=== PATIENT | male | born 1980 | race Caucasian/White ===

== ENCOUNTER 2016-10-15 12:46 | Emergency (ER) | payer OTHER ==
--- NOTE | 2016-10-15 14:25 | ED ORDER SUMMARY ---
..... Patient: BOUCHRA KESSLER OrderSheet Formerly [facility] VisitID: [id number] [address] [place] [address] 36y, M Registration Date/Time: 10/15/2016 ORDER SHEET Weight: 67.1 kg Allergies: No Known Drug Allergy GENERAL ORDERS: Hip 2V Right w AP Pelvis Urgent (13:21 10/15/2016 Yury Adames-C) (Ack 13:24 Hakan) (13:34 Teri) MEDICATION ORDERS: Dilaudid IM 2 mg (HIGH ALERT MEDICATION, NOW) (13:32 10/15/2016 Yury Adames-C) (Ack 13:35 JDeElena R.N.) (13:41 JDeElena R.N.) Phenergan IM 12.5 mg (HIGH ALERT MEDICATION, NOW) (13:32 10/15/2016 Yury Adames-C) (Ack 13:35 JDeElena R.N.) (13:41 JDeElena R.N.) IV FLUIDS: ORDER SHEET NOTES: [Electronically signed by Wendi Maradiaga (14:33 10/15/2016)] [Electronically signed by Moni Camilo P.A.-C (15:57 10/15/2016)] [Electronically locked/signed by Wendi Maradiaga (14:33 10/15/2016)]
--- NOTE | 2016-10-15 14:25 | ED NURSING NOTES ---
Clinical Report - Nurses [facility] [address] [place] [address] 10/15/2016 12:47 Patient: BOUCHRA KESSLER TRIAGE Triage time 1255. Acuity: LEVEL 4. Chief Complaint: RIGHT LOWER EXTREMITY PAIN. Alert. No acute distress. --13:06 Wendi Maradiaga 13:14 10/15/16. BP: 126/82. HR: 123. RR: 24. O2 saturation: 98%. Temp: 97.2 F. Pain level now 02/12. --13:14 Wendi Maradiaga. Weight: 67.1 kg. Height/Length: 66 inches. BMI: 23.9. --13:02 Wendi Maradiaga. Medications Lyrica Oral. --13:03 Wendi Maradiaga. Allergies No Known Drug Allergy. --13:04 Wendi Maradiaga. History Arrived by private vehicle. Historian: patient. Accompanied by family. No injury occurred. This occurred (3 days ago). It is described as radiating to the right buttock, lower extremity, thigh, knee and calf. ( Pt with hx of chronic back pain with fusion, sts he no longer uses opiates and it was his decision to quit). Treatment COLUMNIST: None. SOCIAL HX: Never smoker. History of drug use: marijuana. NUTRITIONAL RISK ASSESSMENT: The nutritional risk assessment revealed no deficiencies. FUNCTIONAL ASSESSMENT: Functional assessment: no impairments noted. LEARNING NEEDS ASSESSMENT: The learning needs assessment revealed no barriers. --13:06 Wendi Maradiaga. PROBLEMS: Substance Abuse. Paronychia. Bronchitis. Fractured Phalanx (Toe). Abrasion(s). Epididymitis. Hernia. Back Injury. Back Pain. Acute Otalgia. Otitis Media. --13:04 Wendi Maradiaga. ADDITIONAL SURGERIES: Back Surgery. Inguinal Hernia Repair. --13:04 Wendi Maradiaga. Interventions ID band on patient. --13:06 Wendi Maradiaga. PHYSICAL ASSESSMENT To room via wheelchair. Patient gowned. GENERAL / NEURO / PSYCH: Oriented X 4. Alert. Appears in no acute distress. EXTREMITIES: Limited ROM present. Extremity pulses are within normal limits. No lower extremity edema. Right hip. Limited ROM secondary to pain. Right thigh. Right knee. Right leg. SKIN: Skin intact. Skin is warm and dry. --13:06 Wendi Maradiaga. NURSING PROGRESS NOTES Patient gowned. Reassurance given. Call light placed in reach. Side rails up x 1. Bed placed in lowest position. Brakes of bed on. Patient ready for evaluation- chart flagged. --13:07 Wendi Maradiaga 13:41 10/15/2016 Dilaudid (HYDROmorphone HCl PF) IM 2 mg given. Given in the right ventral gluteus. Allergies verified, confirmed 5 rights and sedative warning given to the patient. --13:41 Emery Cuevas, RRomuloN. 13:41 10/15/2016 Phenergan (Promethazine HCl) IM 12.5 mg given. Given in the right ventral gluteus. Allergies verified, confirmed 5 rights and sedative warning given to the patient. --13:41 Emery Cuevas, R.N. Reassessment after medication administered. He is calm and resting quietly and has had no adverse reaction. Overall patient status is improved- he states feels better. --14:33 Wendi Maradiaga. DISPOSITION / DISCHARGE Departure time: 1430. Condition at departure: improved and stable. No learning barriers present. Discharge instructions provided and reviewed with the patient. Reviewed medication(s). Patient verbalized understanding. Written instructions provided in Albanian. The patient was discharged by the physician assistant prosecuting attorney. He was discharged home and accompanied by senior ui software engineer. He left the Emergency Department ambulatory and via private vehicle. Lead Vulcanizing Operator driving. --14:32 Wendi Maradiaga 14:31 10/15/16. BP: 121/67. HR: 113. RR: 16. O2 saturation: 98%. Pain level now 12/12. --14:32 Wendi Maradiaga. Locked/Released at 10/15/2016 14:33 by Wendi Maradiaga,
--- NOTE | 2016-10-15 14:25 | ED NURSING NOTES ---
Clinical Report - Nurses [facility] [address] [place] [address] 10/15/2016 12:47 Patient: BOUCHRA KESSLER TRIAGE Triage time 1255. Acuity: LEVEL 4. Chief Complaint: RIGHT LOWER EXTREMITY PAIN. Alert. No acute distress. --13:06 Wendi Maradiaga 13:14 10/15/16. BP: 126/82. HR: 123. RR: 24. O2 saturation: 98%. Temp: 97.2 F. Pain level now 02/12. --13:14 Wendi Maradiaga. Weight: 67.1 kg. Height/Length: 66 inches. BMI: 23.9. --13:02 Wendi Maradiaga. Medications Lyrica Oral. --13:03 Wendi Maradiaga. Allergies No Known Drug Allergy. --13:04 Wendi Maradiaga. History Arrived by private vehicle. Historian: patient. Accompanied by family. No injury occurred. This occurred (3 days ago). It is described as radiating to the right buttock, lower extremity, thigh, knee and calf. ( Pt with hx of chronic back pain with fusion, sts he no longer uses opiates and it was his decision to quit). Treatment WIRER MAINTENANCE: None. SOCIAL HX: Never smoker. History of drug use: marijuana. NUTRITIONAL RISK ASSESSMENT: The nutritional risk assessment revealed no deficiencies. FUNCTIONAL ASSESSMENT: Functional assessment: no impairments noted. LEARNING NEEDS ASSESSMENT: The learning needs assessment revealed no barriers. --13:06 Wendi Maradiaga. PROBLEMS: Substance Abuse. Paronychia. Bronchitis. Fractured Phalanx (Toe). Abrasion(s). Epididymitis. Hernia. Back Injury. Back Pain. Acute Otalgia. Otitis Media. --13:04 Wendi Maradiaga. ADDITIONAL SURGERIES: Back Surgery. Inguinal Hernia Repair. --13:04 Wendi Maradiaga. Interventions ID band on patient. --13:06 Wendi Maradiaga. PHYSICAL ASSESSMENT To room via wheelchair. Patient gowned. GENERAL / NEURO / PSYCH: Oriented X 4. Alert. Appears in no acute distress. EXTREMITIES: Limited ROM present. Extremity pulses are within normal limits. No lower extremity edema. Right hip. Limited ROM secondary to pain. Right thigh. Right knee. Right leg. SKIN: Skin intact. Skin is warm and dry. --13:06 Wendi Maradiaga. NURSING PROGRESS NOTES Patient gowned. Reassurance given. Call light placed in reach. Side rails up x 1. Bed placed in lowest position. Brakes of bed on. Patient ready for evaluation- chart flagged. --13:07 Wendi Maradiaga 13:41 10/15/2016 Dilaudid (HYDROmorphone HCl PF) IM 2 mg given. Given in the right ventral gluteus. Allergies verified, confirmed 5 rights and sedative warning given to the patient. --13:41 Emery Cuevas, RRomuloN. 13:41 10/15/2016 Phenergan (Promethazine HCl) IM 12.5 mg given. Given in the right ventral gluteus. Allergies verified, confirmed 5 rights and sedative warning given to the patient. --13:41 Emery Cuevas, R.N. Reassessment after medication administered. He is calm and resting quietly and has had no adverse reaction. Overall patient status is improved- he states feels better. --14:33 Wendi Maradiaga. DISPOSITION / DISCHARGE Departure time: 1430. Condition at departure: improved and stable. No learning barriers present. Discharge instructions provided and reviewed with the patient. Reviewed medication(s). Patient verbalized understanding. Written instructions provided in Mohawk. The patient was discharged by the physician endodontic assistant. He was discharged home and accompanied by employment director. He left the Emergency Department ambulatory and via private vehicle. Contract Negotiation Specialist driving. --14:32 Wendi Maradiaga 14:31 10/15/16. BP: 121/67. HR: 113. RR: 16. O2 saturation: 98%. Pain level now 12/12. --14:32 Wendi Maradiaga. Locked/Released at 10/15/2016 14:33 by Wendi Maradiaga,
--- NOTE | 2016-10-15 14:25 | ED ORDER SUMMARY ---
..... Patient: BOUCHRA KESSLER OrderSheet [facility] VisitID: [id number] [address] [place] [address] 36y, M Registration Date/Time: 10/15/2016 ORDER SHEET Weight: 67.1 kg Allergies: No Known Drug Allergy GENERAL ORDERS: Hip 2V Right w AP Pelvis Urgent (13:21 10/15/2016 Yury Adames-C) (Ack 13:24 Hakan) (13:34 Teri) MEDICATION ORDERS: Dilaudid IM 2 mg (HIGH ALERT MEDICATION, NOW) (13:32 10/15/2016 Yury Adames-C) (Ack 13:35 JDeElena R.N.) (13:41 JDeElena R.N.) Phenergan IM 12.5 mg (HIGH ALERT MEDICATION, NOW) (13:32 10/15/2016 Yury Adames-C) (Ack 13:35 JDeElena R.N.) (13:41 JDeElena R.N.) IV FLUIDS: ORDER SHEET NOTES: [Electronically signed by Wendi Maradiaga (14:33 10/15/2016)] [Electronically signed by Moni Camilo P.A.-C (15:57 10/15/2016)] [Electronically locked/signed by Wendi Maradiaga (14:33 10/15/2016)]
--- NOTE | 2016-10-15 14:25 | ED CLINICAL REPORT ---
Clinical Report - Physicians/Mid Levels [facility] [address] [place] [address] 10/15/2016 12:47 Patient: BOUCHRA KESSLER Time Seen: 15:34 Oct 15 2016. Arrived- By private vehicle. Historian- patient. HISTORY OF PRESENT ILLNESS Chief Complaint: BACK PAIN. Onset- 3 days and it is still present. It is described as being in the area of the right SI joint and right gluteus. The quality is noted to be "pain". No bladder dysfunction or bowel dysfunction. Additional history - Patient with history of chronic low back pain, recently stopped taking Suboxone,on his own. Patient reports over the last 3 days in worsening of his chronic low back pain extending into his right hip. Pain with movement. Patient is a ambulance with a cane. Patient on disability, limited ambulation or any activity at home. Here with his father. Patient has not seen his regular doctor. Denies any recent IV drug abuse I am over the last 6 months. Patient denies any fevers. Denies any paresthesias. Pain is elicited and worsened with movement. Patient does not take any medications at home. Denies any direct fall or trauma. Denies any radiation into his calf. Denies any abdominal pain, urgency or frequency. Patient notes the possibility of an injury. REVIEW OF SYSTEMS No fever, difficulty with urination, urinary frequency, vaginal discharge or headache. No cough, difficulty breathing, nausea or vomiting. All systems otherwise negative, except as recorded above. PAST HISTORY Problems: Substance Abuse. Paronychia. Bronchitis. Fractured Phalanx (Toe). Abrasion(s). Epididymitis. Hernia. Back Injury. Back Pain. Acute Otalgia. Otitis Media. Additional Surgeries: Back Surgery. Inguinal Hernia Repair. Medications: Lyrica Oral. Allergies: No Known Drug Allergy. SOCIAL HISTORY Never smoker. History of drug use: marijuana. Not an IV drug user. No alcohol use. ADDITIONAL NOTES The nursing notes have been reviewed. PHYSICAL EXAM Vital Signs: 10/15/2016 13:14 BP: 126/82. HR: 123. RR: 24. O2 saturation: 98%. Temp: 97.2 F. Appearance: Alert. Neck: Normal inspection. Neck nontender. CVS: Pulses normal. Respiratory: No respiratory distress. Breath sounds normal. Abdomen: No visible injury. Soft. Bowel sounds normal. No rebound tenderness. Back: Normal inspection. No tenderness. Mild vertebral point tenderness over the mid and lower lumbar spine. Skin: Skin warm. Normal skin color. Extremities: Right hip: located in the lateral aspect of the hip. Limited ROM secondary to pain (diminished external rotation). No tenderness, swelling, ecchymosis or foreign body. The right leg is not shortened or flexed. Neuro: Oriented X 3. Mood/affect normal. PROGRESS AND PROCEDURES Course of Care: There are no risks for spinal epidural abscess or hematoma as patient is without any risk factors such as IVDA or evidence of active infection, no midline tenderness to percussion. Hence I do not feel emergent imaging with an MRI is indicated. However I did discuss with the patient that if these symptoms develop, or if the pain does not resolve an MRI may need to be done outpatient, or in the ED if symptoms worsen acutely or new onset of the above mentioned symptoms develop. Patient urged to follow up with his primary care provider. Very stable. 10/15/2016 14:31 BP: 121/67. HR: 113. RR: 16. O2 saturation: 98%. Patient is stable. Symptoms better. Patient/family counseled. Disposition: Discharged. CLINICAL IMPRESSION Acute right sided lumbar radiculopathy. Arthritis of the right hip. INSTRUCTIONS Prescription Medications: Hydrocodone/APAP 7.5mg / 325mg: take 1 orally every 6 hours as needed for pain. Dispense twenty (20). No refill. Robaxin 750 mg: take 1 orally every 8 hours for 5 days, as needed for muscle spasm or pain. Dispense fifteen (15). No refill. Ibuprofen 800 mg tablets: take 1 tablet orally every 8 hours for 5 days, as needed for pain. Dispense fifteen (15). No refill. (Electronically signed by Moni Camilo P.A.-C 10/15/2016 15:57)
--- NOTE | 2016-10-15 14:32 | DIAGNOSTIC IMAGING REPORT ---
PROCEDURE: XR HIP 2VW W W/O AP PELVIS-RT INDICATION: PAIN IN JOINT TECHNIQUE: AP view of the pelvis and hips with lateral view of the right hip. COMPARISON: None. FINDINGS: RIGHT HIP: No fracture or dislocation. Normal joint space. PELVIS: No suspicious osseous lesion. L5-S1 surgical fusion with pedicle screws and stabilization bars. Soft tissues are unremarkable. IMPRESSION: 1. Negative right hip.
--- NOTE | 2016-10-15 15:57 | ED MAR SUMMARY ---
..... Medication Administration Record [facility] [address] [place] [address] Patient: BOUCHRA KESSLER Visit ID: [id number] 36y, M Weight: 67.1 kg Height/Length: 66 in BMI: 23.9 ALLERGIES: No Known Drug Allergy Given 13:10/15/2016 Emery Cuevas, R.N. Medication Administered: DILAUDID [IM] (HYDROMORPHONE HCL PF), Dose: 2 mg IM. Medication Ordered: Dilaudid IM 2 mg (HIGH ALERT MEDICATION, NOW). Given 13:10/15/2016 Emery Cuevas, R.N. Medication Administered: PHENERGAN [IM] (PROMETHAZINE HCL), Dose: 12.5 mg IM. Medication Ordered: Phenergan IM 12.5 mg (HIGH ALERT MEDICATION, NOW).
--- NOTE | 2016-10-15 15:57 | ED MED RECONCILIATION SUMMARY ---
Patient: BOUCHRA KESSLER Medication Reconciliation Report [facility] VisitID: [id number] [address] [place] [place] [address] 36y, M Registration Date/Time: 10/15/2016 Weight: 67.1 kg Height/Length: 66 in. BMI: 23.9 ALLERGIES: No Known Drug Allergy The patient's Home Medications are listed below: THE FOLLOWING MEDICATIONS NEED TO BE RECONCILED: Lyrica Oral The source(s) of the original Home Medication information: Not obtained. The following Medications were given to the patient in the Emergency Department: Dilaudid [IM] IM 2 mg, administered: 10/15/2016 1:41:00 PM Phenergan [IM] IM 12.5 mg, administered: 10/15/2016 1:41:00 PM The following Medications were prescribed to the patient: Hydrocodone/APAP 7.5mg / 325mg: take 1 orally every 6 hours as needed for pain. Dispense twenty (20). No refill. -- Moni Camilo, P.A.-C Robaxin 750 mg: take 1 orally every 8 hours for 5 days, as needed for muscle spasm or pain. Dispense fifteen (15). No refill. -- Moni Camilo, P.A.-C Ibuprofen 800 mg tablets: take 1 tablet orally every 8 hours for 5 days, as needed for pain. Dispense fifteen (15). No refill. -- Moni Camilo, P.A.-C
--- NOTE | 2016-10-15 15:57 | ED MAR SUMMARY ---
..... Medication Administration Record [facility] [address] [place] [address] Patient: BOUCHRA KESSLER Visit ID: [id number] 36y, M Weight: 67.1 kg Height/Length: 66 in BMI: 23.9 ALLERGIES: No Known Drug Allergy Given 13:10/15/2016 Emery Cuevas, R.N. Medication Administered: DILAUDID [IM] (HYDROMORPHONE HCL PF), Dose: 2 mg IM. Medication Ordered: Dilaudid IM 2 mg (HIGH ALERT MEDICATION, NOW). Given 13:10/15/2016 Emery Cuevas, R.N. Medication Administered: PHENERGAN [IM] (PROMETHAZINE HCL), Dose: 12.5 mg IM. Medication Ordered: Phenergan IM 12.5 mg (HIGH ALERT MEDICATION, NOW).
--- NOTE | 2016-10-15 15:57 | ED MED RECONCILIATION SUMMARY ---
Patient: BOUCHRA KESSLER Medication Reconciliation Report [facility] VisitID: [id number] [address] [place] [address] 36y, M Registration Date/Time: 10/15/2016 Weight: 67.1 kg Height/Length: 66 in. BMI: 23.9 ALLERGIES: No Known Drug Allergy The patient's Home Medications are listed below: THE FOLLOWING MEDICATIONS NEED TO BE RECONCILED: Lyrica Oral The source(s) of the original Home Medication information: Not obtained. The following Medications were given to the patient in the Emergency Department: Dilaudid [IM] IM 2 mg, administered: 10/15/2016 1:41:00 PM Phenergan [IM] IM 12.5 mg, administered: 10/15/2016 1:41:00 PM The following Medications were prescribed to the patient: Hydrocodone/APAP 7.5mg / 325mg: take 1 orally every 6 hours as needed for pain. Dispense twenty (20). No refill. -- Moni Camilo, P.A.-C Robaxin 750 mg: take 1 orally every 8 hours for 5 days, as needed for muscle spasm or pain. Dispense fifteen (15). No refill. -- Moni Camilo, P.A.-C Ibuprofen 800 mg tablets: take 1 tablet orally every 8 hours for 5 days, as needed for pain. Dispense fifteen (15). No refill. -- Moni Camilo, P.A.-C
--- NOTE | 2016-10-15 15:57 | ED DISCHARGE INSTRUCTIONS ---
Patient: BOUCHRA KESSLER General Instructions [facility] VisitID: [id number] [place] [address] 36y, M Registration Date/Time: 10/15/2016 Acute right sided lumbar radiculopathy. Arthritis of the right hip. INSTRUCTIONS Prescription Medications: Hydrocodone/APAP 7.5mg / 325mg: take 1 orally every 6 hours as needed for pain. Dispense twenty (20). No refill. Robaxin 750 mg: take 1 orally every 8 hours for 5 days, as needed for muscle spasm or pain. Dispense fifteen (15). No refill. Ibuprofen 800 mg tablets: take 1 tablet orally every 8 hours for 5 days, as needed for pain. Dispense fifteen (15). No refill. ADDITIONAL INFORMATION Sciatica Sciatica ("Lumbar Radiculopathy") causes a pain that spreads from the lower back down into the buttock, hip and leg. Sometimes leg pain can occur without any back pain. Sciatica is due to irritation or pressure on a spinal nerve as it comes out of the spinal canal. This is most often due to a bulge or rupture of a nearby spinal disk (the cartilage cushion between each spinal bone), which presses on a nearby nerve. Other causes include spinal stenosis (narrowing of the spinal canal) and spasm of the pyriform muscle (a muscle in the buttocks that the sciatic nerve passes through). Sciatica may begin after a sudden twisting/bending force (such as in a car accident), or sometimes after a simple awkward movement. In either case, muscle spasm is commonly present and contributes to the pain. The diagnosis of sciatica is made from the symptoms and physical exam. Unless you had a physical injury (such as a car accident or fall), X-rays are usually not ordered for the initial evaluation of sciatica because the nerves and disks cannot be seen on an x-ray. If signs of a compressed nerve are present (for example, loss of tendon reflex or strength in the leg), an MRI (magnetic resonance imaging) scan will need to be scheduled as an outpatient. Most sciatica (80-90%) gets better with medicine, exercise, physical therapy. If symptoms continue after at least three months of medical treatment, surgery may be considered. Home Care: You may need to stay in bed the first few days. But, as soon as possible, begin sitting or walking to avoid problems with prolonged bed rest. When in bed, try to find a position of comfort. A firm mattress is best. Try lying flat on your back with pillows under your knees. You can also try lying on your side with your knees bent up towards your chest and a pillow between your knees. Avoid prolonged sitting. This puts more stress on the lower back than standing or walking. Some persons find relief with heat (hot shower, hot bath or heating pad) and massage, while others prefer cold packs (crushed or cubed ice in a plastic bag, wrapped in a towel). Try both and use the method that feels best for 20 minutes several times a day. You may use acetaminophen (Tylenol) or ibuprofen (Motrin, Advil) to control pain, unless another pain medicine was prescribed. [ NOTE: If you have chronic liver or kidney disease or ever had a stomach ulcer or GI bleeding, talk with your doctor before using these medicines.] Be aware of safe lifting methods and do not lift anything over 15 pounds until all the pain is gone. Follow Up with your doctor or this facility if your symptoms do not start to improve after one week. Physical therapy or further testing may be needed. [NOTE: If X-rays were taken, they will be reviewed by a radiologist. You will be notified of any new findings that may affect your care.] Get Prompt Medical Attention if any of the following occur: Pain becomes worse, not controlled by the prescribed medicine Weakness or numbness in one or both legs Numbness in the groin, genital area Loss of bowel or bladder control Arthralgia Arthralgia is the term for pain in or around the joint. It is not a disease but a symptom. This may involve one or more joints. Sometimes arthralgias move from joint to joint. There are many causes for joint pain. These include: Injury Osteoarthritis (from wearing out of the joint surface) Rheumatoid arthritis (an autoimmune disease) Gout (inflammation of the joint due to crystals in the joint fluid) Infection inside the joint Bursitis (inflammation of the fluid-filled sacs around the joint) Lupus and other collagen-vascular disease Home Care: Rest the involved joint(s) until your symptoms improve. You may use acetaminophen (Tylenol) or ibuprofen (Motrin, Advil) to control pain, unless another pain medicine was prescribed. [NOTE: If you have chronic liver or kidney disease or ever had a stomach ulcer or GI bleeding, talk with your doctor before using these medicines.] Follow Up with your doctor or as advised by our staff. [NOTE: If you had an X-ray it will be reviewed by a specialist. You will be notified of any new findings that may affect your care.] Return Promptly or contact your doctor if any of the following occurs: Pain increases Pain moves to other joints New rash appears Fever of 100.4F (38C) or higher, or as directed by your healthcare provider Hydrocodone Bitartrate, Acetaminophen Oral tablet What is this medicine? ACETAMINOPHEN; HYDROCODONE (a set a MIKE kira fen; nae droe KOE done) is a pain reliever. It is used to treat mild to moderate pain. How should I use this medicine? Take this medicine by mouth. Swallow it with a full glass of water. Follow the directions on the prescription label. If the medicine upsets your stomach, take the medicine with food or milk. Do not take more than you are told to take. Talk to your zookeeper regarding the use of this medicine in children. This medicine is not approved for use in children. What side effects may I notice from receiving this medicine? Side effects that you should report to your doctor or health primary care sales representative as soon as possible: allergic reactions like skin rash, itching or hives, swelling of the face, lips, or tongue breathing problems confusion feeling faint or lightheaded, falls stomach pain yellowing of the eyes or skin Side effects that usually do not require medical attention (report to your doctor or health primary care sales representative if they continue or are bothersome): nausea, vomiting stomach upset What may interact with this medicine? alcohol antihistamines isoniazid medicines for depression, anxiety, or psychotic disturbances medicines for sleep muscle relaxants naltrexone narcotic medicines (opiates) for pain phenobarbital ritonavir tramadol What if I miss a dose? If you miss a dose, take it as soon as you can. If it is almost time for your next dose, take only that dose. Do not take double or extra doses. Where should I keep my medicine? Keep out of the reach of children. This medicine can be abused. Keep your medicine in a safe place to protect it from theft. Do not share this medicine with anyone. Selling or giving away this medicine is dangerous and against the law. Store at room temperature between 15 and 30 degrees C (59 and 86 degrees F). Protect from light. Keep container tightly closed. Throw away any unused medicine after the expiration date. Discard unused medicine and used packaging carefully. Pets and children can be harmed if they find used or lost packages. What should I tell my health care provider before I take this medicine? They need to know if you have any of these conditions: brain tumor Crohn's disease, inflammatory bowel disease, or ulcerative colitis drink more than 3 alcohol-containing drinks per day drug abuse or addiction head injury heart or circulation problems kidney disease or problems going to the bathroom liver disease lung disease, asthma, or breathing problems an unusual or allergic reaction to acetaminophen, hydrocodone, other opioid analgesics, other medicines, foods, dyes, or preservatives or trying to get breast-feeding What should I watch for while using this medicine? Tell your doctor or health primary care sales representative if your pain does not go away, if it gets worse, or if you have new or a different type of pain. You may develop tolerance to the medicine. Tolerance means that you will need a higher dose of the medicine for pain relief. Tolerance is normal and is expected if you take the medicine for a long time. Do not suddenly stop taking your medicine because you may develop a severe reaction. Your body becomes used to the medicine. This does NOT mean you are addicted. Addiction is a behavior related to getting and using a drug for a non-medical reason. If you have pain, you have a medical reason to take pain medicine. Your doctor will tell you how much medicine to take. If your doctor wants you to stop the medicine, the dose will be slowly lowered over time to avoid any side effects. You may get drowsy or dizzy when you first start taking the medicine or change doses. Do not drive, use machinery, or do anything that may be dangerous until you know how the medicine affects you. Stand or sit up slowly. There are different types of narcotic medicines (opiates) for pain. If you take more than one type at the same time, you may have more side effects. Give your health care provider a list of all medicines you use. Your doctor will tell you how much medicine to take. Do not take more medicine than directed. Call emergency for help if you have problems breathing. The medicine will cause constipation. Try to have a bowel movement at least every 2 to 3 days. If you do not have a bowel movement for 3 days, call your doctor or health primary care sales representative. Too much acetaminophen can be very dangerous. Do not take Tylenol (acetaminophen) or medicines that contain acetaminophen with this medicine. Many non-prescription medicines contain acetaminophen. Always read the labels carefully. Methocarbamol Oral tablet What is this medicine? METHOCARBAMOL (meth oh JEANA ba mole) helps to relieve pain and stiffness in muscles caused by strains, sprains, or other injury to your muscles. How should I use this medicine? Take this medicine by mouth with a full glass of water. Follow the directions on the prescription label. Take your medicine at regular intervals. Do not take your medicine more often than directed. Talk to your zookeeper regarding the use of this medicine in children. Special care may be needed. What side effects may I notice from receiving this medicine? Side effects that you should report to your doctor or health primary care sales representative as soon as possible: allergic reactions like skin rash, itching or hives, swelling of the face, lips, or tongue blurred vision or changes in vision confusion fainting spells fever nausea or vomiting seizures Side effects that usually do not require medical attention (report to your doctor or health primary care sales representative if they continue or are bothersome): dizziness drowsiness headache metallic taste What may interact with this medicine? alcohol or medicines that contain alcohol cholinesterase inhibitors like neostigmine, ambenonium, and pyridostigmine bromide other medicines that cause drowsiness What if I miss a dose? If you miss a dose, take it as soon as you can. If it is almost time for your next dose, take only the next dose. Do not take double or extra doses. Where should I keep my medicine? Keep out of the reach of children. Store at room temperature between 20 and 25 degrees C (68 and 77 degrees F). Keep container tightly closed. Throw away any unused medicine after the expiration date. What should I tell my health care provider before I take this medicine? They need to know if you have any of these conditions: kidney disease seizures an unusual or allergic reaction to methocarbamol, other medicines, foods, dyes, or preservatives or trying to get breast-feeding What should I watch for while using this medicine? You may get drowsy or dizzy. Do not drive, use machinery, or do anything that needs mental alertness until you know how this medicine affects you. Do not stand or sit up quickly, especially if you are an older patient. This reduces the risk of dizzy or fainting spells. Alcohol may interfere with the effect of this medicine. Avoid alcoholic drinks. You have been given the following additional information: Back Pain W/ Sciatica Arthralgia Hydrocodone Bitartrate, Acetaminophen Oral tablet Methocarbamol Oral tablet (Electronically signed by Moni Camilo P.A.-C 10/15/2016 15:57)
== END 2016-10-15 14:30 | disposition home or self-care (01) ==
LOC: ED SRH 12:46
DX: M54.16 Radiculopathy, lumbar region (principal); M16.11 Unilateral primary osteoarthritis, right hip; Z79.899 Other long term (current) drug therapy

== ENCOUNTER 2016-12-11 12:41 | Emergency (ER) | payer OTHER ==
--- NOTE | 2016-12-11 16:37 | DIAGNOSTIC IMAGING REPORT ---
PROCEDURE: XR CHEST 1 VIEW INDICATION: FEVER TECHNIQUE: Portable AP view (1500 hours). COMPARISON: Para chest x-ray on 10/08/2015. FINDINGS: Lungs are clear. Heart and mediastinum are normal. Thorax is normal. IMPRESSION: 1. Negative chest. 2. Findings discussed with Dr. Pricilla Ortega.
--- NOTE | 2016-12-11 18:02 | ED CLINICAL REPORT ---
Clinical Report - Physicians/Mid Levels [facility] [address] [place] [address] 12/11/2016 12:42 Patient: BOUCHRA KESSLER Time Seen: 1248. Arrived- By ambulance. Historian- patient and EMS personnel. HISTORY OF PRESENT ILLNESS Chief Complaint: BACK PAIN. Onset- patient has a history of chronic back pain, but had an escalation in pain starting about a week ago. Pain has been worse especially over the last 2 days. and it is still present. Modifying factors. (Movement worsens; nothing makes it better.). It is described as being severe and in the area of the lower lumbar spine. The quality is noted to be "pain". Quality not similar to prior episodes. No bladder dysfunction, bowel dysfunction, sensory loss or motor loss. Patient denies an injury. No other injury. Similar symptoms previously: Milder. Recent medical care: The patient was seen recently at another facility in the emergency department. REVIEW OF SYSTEMS No fever, chills, eye discomfort, headache or sore throat. No cough, chest pain, skin rash, abdominal pain or nausea. No vomiting, diarrhea, black stools, difficulty with urination or urinary frequency. No hematuria or bloody stools. The patient has had difficulty breathing. All systems otherwise negative, except as recorded above. PAST HISTORY Problems: Lumbar Radiculopathy. Arthritis. Substance Abuse. Epididymitis. Hernia. Additional Surgeries: Back Surgery. Inguinal Hernia Repair. Medications: Lyrica Oral. Allergies: No Known Drug Allergy. SOCIAL HISTORY Smoker- current status unknown. History of drug use: heroin, methamphetamines. ADDITIONAL NOTES The nursing notes have been reviewed. PHYSICAL EXAM Vital Signs: 12/11/2016 12:50 BP: 115/75. HR: 113. RR: 24. O2 saturation: 97%. Temp: 98.2 F. Pain level now: 03/14. Have been reviewed. Appearance: Alert. Patient in moderate distress. Distress appears due to pain and anxiety. HEENT: Normal external inspection. Eyes: Pupils equal, round and reactive to light. Neck: Normal inspection. Neck nontender. CVS: Normal heart rate and rhythm. Heart sounds normal. Pulses normal. Respiratory: No respiratory distress. Breath sounds normal. Chest nontender. Abdomen: Soft. Moderate tenderness diffusely. No guarding or rebound tenderness. Back: Moderately limited ROM in the back- in the lumbar spine: decreased flexion, right lateral bending, left lateral bending and rotation to the right and left. No soft tissue tenderness or CVA tenderness. Skin: Skin warm. Normal skin color. No rash. Normal skin turgor. Moderate diaphoresis. Extremities: Extremities exhibit normal ROM. Extremities nontender. Neuro: Mood/affect normal. No motor deficit. No sensory deficit. LABS, X-RAYS, AND EKG Laboratory Tests: UA-Culture if indicated: (MELISSA: 12/11/2016 16:35) ( [facility] [place] 12/11/2016 17:00) Final results Test Result Flag Units (Reference) URINE COLOR SHIRLEY URINE APPEARANCE CLEAR URINE GLUCOSE 1+ (NEGATIVE) URINE BILIRUBIN 1+ (NEGATIVE) URINE KETONE 1+ (NEGATIVE) URINE SPECIFIC GRAVITY 1.025 (1.010-1.030) URINE PH 6.0 (5.0-8.0) URINE PROTEIN 2+ (NEGATIVE) URINE UROBILINOGEN 1.0 EU/dL (0.2-1.0) URINE NITRITE NEGATIVE (NEGATIVE) URINE BLOOD NEGATIVE (NEGATIVE) URINE LEUK ESTERASE NEGATIVE (NEGATIVE) URINE RBC NONE SEEN rbc/hpf (0-1) URINE WBC 3-5 wbc/hpf (0-1) URINE EPITHELIAL CELLS RARE EPI/hpf (0-5) URINE BACTERIA MODERATE (2+ TO 3+) (NONE SEEN) URINE COMMENT CULTURE INDICATED 1+ MUCUSICTO TEST NEGATIVE.URINE CULTURES ARE SET-UP BASED ON THE FOLLOWING CRITERIA:POSITIVE NITRITEPOSITIVE LEUKOCYTE ESTERASEGREATER THAN 10 WHITE BLOOD CELLSMODERATE (2+) OR GREATER BACTERIA CBC w Diff: (MELISSA: 12/11/2016 15:10) ( [facility] [place] 12/11/[place] 16:00) Final results Test Result Flag Units (Reference) WHITE BLOOD COUNT 11.6 H K/uL (4.5-11.5) RED BLOOD COUNT 4.58 M/uL (4.50-5.90) HEMOGLOBIN 12.4 L gm/dL (13.5-17.5) HEMATOCRIT 37.4 L % (41.0-53.0) MEAN CELL VOLUME 82 fL (80-100) MEAN CORPUSCULAR HGB 27 pg (26-34) MEAN CORPUSCULAR HGB CONC 33 g/dL (31-37) RED CELL DISTRIBUTION WIDTH 15.5 H % (11.6-14.8) PLATELET COUNT 176 K/uL (150-400) POLY % 61 % (50-75) BAND % 25 H % (0-8) LYMPH 7 L % (25-40) MONO 7 % (3-14) EOSINOPHIL % 0 % (0-4) BASOPHIL % 0 % (0-2) METAMYELOCYTE % 0 % (0-1) MYELOCYTE 0 % (0-1) OTHER CELL TYPE 0 ANISOCYTOSIS 1+ Urine Drug Screen: (MELISSA: 12/11/2016 16:35) ( [facility] 12/11/2016 17:02) Final results Test Result Flag Units (Reference) AMPHETAMINE/METHAMPHETAMINE POSITIVE H (NEGATIVE) BARBITURATE NEGATIVE (NEGATIVE) BENZODIAZEPINE POSITIVE H (NEGATIVE) CANNABINOID POSITIVE H (NEGATIVE) COCAINE NEGATIVE (NEGATIVE) ECSTASY NEGATIVE (NEGATIVE) METHADONE NEGATIVE (NEGATIVE) OPIATE POSITIVE H (NEGATIVE) The urine drug screen is a qualitative screening test fordrug overdose and abuse. All screen results should beconsidered as presumptive.Drugs screened for are as follows:BenzodiazepinesCocaineAmphetamines/MetamphetaminesTHC (Tetrahydrocannabinol)OpiatesBarbituratesEcstasyMethadonePositive results are unconfirmed. For confirmation, notifythe lab for the specimen to be sent to the reference lab.All confirmations must be performed by a differentmethodology.The ingestion of natural herbal and plant productscontaining Ephedra/Ephedra metabolites can produce in urineone or more substances capable of cross reacting withamphetamine/methamphetamine immunoassays. These testsprovide a preliminary result only. A more specificalternative chemical method must be used to obtain aconfirmed analytical result. CMP: (MELISSA: 12/11/2016 15:10) ( [facility] [place] 12/11/2016 15:44) Final results Test Result Flag Units (Reference) GLUCOSE 133 H mg/dL (70-110) BUN 11 mg/dL (7-18) CREATININE 0.9 mg/dL (0.6-1.3) Estimated GFR >60 mL/min Estimated GFR- >60 mL/min Note: Persistent reduction over 3 months in eGFR<60 mL/min/1.73 m2 defines CKD. Patients with eGFR values>=60 mL/min/1.73 m2 may also have CKD if evidence ofpersistent proteinuria. Additional information may be foundat www.[email or web address].org. SODIUM 133 L mmol/L (136-145) POTASSIUM 4.0 mmol/L (3.5-5.1) CHLORIDE 98 mmol/L (98-107) CARBON DIOXIDE 27 mmol/L (21-32) CALCIUM 8.4 L mg/dL (8.5-10.1) TOTAL PROTEIN 6.6 g/dL (6.4-8.2) ALBUMIN 3.0 L g/dL (3.3-5.0) BILIRUBIN, TOTAL 2.1 H mg/dL (0.0-1.0) ALKALINE PHOSPHATASE 131 H U/L (46-116) AST (SGOT) 85 H U/L (15-37) ALT (SGPT) 113 H U/L (12-78) . Pulse Oximetry: 12/11/2016 12:50 O2 saturation: 97%. (FIO2 - room air). Interpretation: normal. PROGRESS AND PROCEDURES Course of Care: patient was evaluated by myself in the emergency department for back pain. On my evaluation I found the patient to be significantly tachycardic and tactilely febrile, and upon rechecking his temperature myself orally, he was sent to have a temperature of 102.2. Patient was given IV Toradol and oral acetaminophen for this, as well as IV fluids. I did feel the patient should be worked up for his fever, and this was done with laboratory studies, chest x-ray, urinalysis and blood cultures. Patient was found to have a mild elevation of his white blood cells but otherwise his workup was negative. The patient had stated to the nursing staff initially that he did not use drugs; however I did find his urine drug screen to be positive for methamphetamines, opiates, benzodiazepines, and marijuana. I did speak with the patient regarding this and he stated that he "only uses once in a while" When pressed for more specifics patient admitted to smoking methamphetamines 5 days ago, though he denied any more recent use. He states he last shot up heroin 2 weeks ago. Although the patient had a history of chronic low back pain, I was concerned with the recent escalation of pain, as well as the patient's known IV drug abuse. Additionally, since he had not been honest in the original history giving, I was not confident that his current rendering was completely accurate. As such, I felt that he was at risk for discitis or spinal epidural abscess, and as such I felt he should have an MRI performed to evaluate for this. As we did not have MRI here on the weekend, I did speak with Dr. Cunningham at [place] emergency department to arrange for the patient to be transferred there for his MRI. She did accept the patient in transfer. I did discuss with the patient that we will be transferring him to [place] for the purpose of MRI to rule out a spinal infection. Patient is very concerned that he would not be discharged home with any prescriptions for pain medication, and I did state to him that this would be between him and the discharging physician. Patient's father did come out later, asking if I would send the patient with a prescription for pain medications at home and I did decline. Discussed case with health care provider (Denis/Trinh). Reviewed test results and need for additional work-up. Agreed upon treatment plan. Health care provider will see patient in ED. Patient and family counseled in person regarding the patient's serious condition, test results, diagnosis and need for additional testing and transfer. Concerns were addressed. Old medical records reviewed. Disposition: Transferred to [facility]. Condition: stable and serious. CLINICAL IMPRESSION Acute fever. Chronic nontraumatic lumbar back pain. (with acute exacerbation). Substance abuse- heroin, methamphetamines. Fever in the setting of IV drug abuse, possible discitis vs spinal epidural abscess. (Electronically signed by Pricilla Ortega MD 12/13/2016 0:07) Addenda for BOUCHRA KESSLER VisitID: [id number] Date: 12/11/2016 12/12/2016 16:16 pt was transferred to [facility]; urine culture report faxed to [facility] ([phone]) (Electronically signed by Cynthia Corbett R.N. - 12/12/2016 16:16)
--- NOTE | 2016-12-11 18:02 | ED CLINICAL REPORT ---
Clinical Report - Physicians/Mid Levels [facility] [address] [place] [address] 12/11/2016 12:42 Patient: BOUCHRA KESSLER Time Seen: 1248. Arrived- By ambulance. Historian- patient and EMS personnel. HISTORY OF PRESENT ILLNESS Chief Complaint: BACK PAIN. Onset- patient has a history of chronic back pain, but had an escalation in pain starting about a week ago. Pain has been worse especially over the last 2 days. and it is still present. Modifying factors. (Movement worsens; nothing makes it better.). It is described as being severe and in the area of the lower lumbar spine. The quality is noted to be "pain". Quality not similar to prior episodes. No bladder dysfunction, bowel dysfunction, sensory loss or motor loss. Patient denies an injury. No other injury. Similar symptoms previously: Milder. Recent medical care: The patient was seen recently at another facility in the emergency department. REVIEW OF SYSTEMS No fever, chills, eye discomfort, headache or sore throat. No cough, chest pain, skin rash, abdominal pain or nausea. No vomiting, diarrhea, black stools, difficulty with urination or urinary frequency. No hematuria or bloody stools. The patient has had difficulty breathing. All systems otherwise negative, except as recorded above. PAST HISTORY Problems: Lumbar Radiculopathy. Arthritis. Substance Abuse. Epididymitis. Hernia. Additional Surgeries: Back Surgery. Inguinal Hernia Repair. Medications: Lyrica Oral. Allergies: No Known Drug Allergy. SOCIAL HISTORY Smoker- current status unknown. History of drug use: heroin, methamphetamines. ADDITIONAL NOTES The nursing notes have been reviewed. PHYSICAL EXAM Vital Signs: 12/11/2016 12:50 BP: 115/75. HR: 113. RR: 24. O2 saturation: 97%. Temp: 98.2 F. Pain level now: 03/14. Have been reviewed. Appearance: Alert. Patient in moderate distress. Distress appears due to pain and anxiety. HEENT: Normal external inspection. Eyes: Pupils equal, round and reactive to light. Neck: Normal inspection. Neck nontender. CVS: Normal heart rate and rhythm. Heart sounds normal. Pulses normal. Respiratory: No respiratory distress. Breath sounds normal. Chest nontender. Abdomen: Soft. Moderate tenderness diffusely. No guarding or rebound tenderness. Back: Moderately limited ROM in the back- in the lumbar spine: decreased flexion, right lateral bending, left lateral bending and rotation to the right and left. No soft tissue tenderness or CVA tenderness. Skin: Skin warm. Normal skin color. No rash. Normal skin turgor. Moderate diaphoresis. Extremities: Extremities exhibit normal ROM. Extremities nontender. Neuro: Mood/affect normal. No motor deficit. No sensory deficit. LABS, X-RAYS, AND EKG Laboratory Tests: UA-Culture if indicated: (MELISSA: 12/11/2016 16:35) ( [facility] 17[facility]00) Final results Test Result Flag Units (Reference) URINE COLOR SHIRLEY URINE APPEARANCE CLEAR URINE GLUCOSE 1+ (NEGATIVE) URINE BILIRUBIN 1+ (NEGATIVE) URINE KETONE 1+ (NEGATIVE) URINE SPECIFIC GRAVITY 1.025 (1.010-1.030) URINE PH 6.0 (5.0-8.0) URINE PROTEIN 2+ (NEGATIVE) URINE UROBILINOGEN 1.0 EU/dL (0.2-1.0) URINE NITRITE NEGATIVE (NEGATIVE) URINE BLOOD NEGATIVE (NEGATIVE) URINE LEUK ESTERASE NEGATIVE (NEGATIVE) URINE RBC NONE SEEN rbc/hpf (0-1) URINE WBC 3-5 wbc/hpf (0-1) URINE EPITHELIAL CELLS RARE EPI/hpf (0-5) URINE BACTERIA MODERATE (2+ TO 3+) (NONE SEEN) URINE COMMENT CULTURE INDICATED 1+ MUCUSICTO TEST NEGATIVE.URINE CULTURES ARE SET-UP BASED ON THE FOLLOWING CRITERIA:POSITIVE NITRITEPOSITIVE LEUKOCYTE ESTERASEGREATER THAN 10 WHITE BLOOD CELLSMODERATE (2+) OR GREATER BACTERIA CBC w Diff: (MELISSA: 12/11/2016 15:10) ( [facility] 12/11/2016 16:00) Final results Test Result Flag Units (Reference) WHITE BLOOD COUNT 11.6 H K/uL (4.5-11.5) RED BLOOD COUNT 4.58 M/uL (4.50-5.90) HEMOGLOBIN 12.4 L gm/dL (13.5-17.5) HEMATOCRIT 37.4 L % (41.0-53.0) MEAN CELL VOLUME 82 fL (80-100) MEAN CORPUSCULAR HGB 27 pg (26-34) MEAN CORPUSCULAR HGB CONC 33 g/dL (31-37) RED CELL DISTRIBUTION WIDTH 15.5 H % (11.6-14.8) PLATELET COUNT 176 K/uL (150-400) POLY % 61 % (50-75) BAND % 25 H % (0-8) LYMPH 7 L % (25-40) MONO 7 % (3-14) EOSINOPHIL % 0 % (0-4) BASOPHIL % 0 % (0-2) METAMYELOCYTE % 0 % (0-1) MYELOCYTE 0 % (0-1) OTHER CELL TYPE 0 ANISOCYTOSIS 1+ Urine Drug Screen: (MELISSA: 12/11/2016 16:35) ( [facility] 12/11/2016 17:02) Final results Test Result Flag Units (Reference) AMPHETAMINE/METHAMPHETAMINE POSITIVE H (NEGATIVE) BARBITURATE NEGATIVE (NEGATIVE) BENZODIAZEPINE POSITIVE H (NEGATIVE) CANNABINOID POSITIVE H (NEGATIVE) COCAINE NEGATIVE (NEGATIVE) ECSTASY NEGATIVE (NEGATIVE) METHADONE NEGATIVE (NEGATIVE) OPIATE POSITIVE H (NEGATIVE) The urine drug screen is a qualitative screening test fordrug overdose and abuse. All screen results should beconsidered as presumptive.Drugs screened for are as follows:BenzodiazepinesCocaineAmphetamines/MetamphetaminesTHC (Tetrahydrocannabinol)OpiatesBarbituratesEcstasyMethadonePositive results are unconfirmed. For confirmation, notifythe lab for the specimen to be sent to the reference lab.All confirmations must be performed by a differentmethodology.The ingestion of natural herbal and plant productscontaining Ephedra/Ephedra metabolites can produce in urineone or more substances capable of cross reacting withamphetamine/methamphetamine immunoassays. These testsprovide a preliminary result only. A more specificalternative chemical method must be used to obtain aconfirmed analytical result. CMP: (MELISSA: 12/11/2016 15:10) ( [facility] 12/11/2016 15:44) Final results Test Result Flag Units (Reference) GLUCOSE 133 H mg/dL (70-110) BUN 11 mg/dL (7-18) CREATININE 0.9 mg/dL (0.6-1.3) Estimated GFR >60 mL/min Estimated GFR- >60 mL/min Note: Persistent reduction over 3 months in eGFR<60 mL/min/1.73 m2 defines CKD. Patients with eGFR values>=60 mL/min/1.73 m2 may also have CKD if evidence ofpersistent proteinuria. Additional information may be foundat www.kidney.org. SODIUM 133 L mmol/L (136-145) POTASSIUM 4.0 mmol/L (3.5-5.1) CHLORIDE 98 mmol/L (98-107) CARBON DIOXIDE 27 mmol/L (21-32) CALCIUM 8.4 L mg/dL (8.5-10.1) TOTAL PROTEIN 6.6 g/dL (6.4-8.2) ALBUMIN 3.0 L g/dL (3.3-5.0) BILIRUBIN, TOTAL 2.1 H mg/dL (0.0-1.0) ALKALINE PHOSPHATASE 131 H U/L (46-116) AST (SGOT) 85 H U/L (15-37) ALT (SGPT) 113 H U/L (12-78) . Pulse Oximetry: 12/11/2016 12:50 O2 saturation: 97%. (FIO2 - room air). Interpretation: normal. PROGRESS AND PROCEDURES Course of Care: patient was evaluated by myself in the emergency department for back pain. On my evaluation I found the patient to be significantly tachycardic and tactilely febrile, and upon rechecking his temperature myself orally, he was sent to have a temperature of 102.2. Patient was given IV Toradol and oral acetaminophen for this, as well as IV fluids. I did feel the patient should be worked up for his fever, and this was done with laboratory studies, chest x-ray, urinalysis and blood cultures. Patient was found to have a mild elevation of his white blood cells but otherwise his workup was negative. The patient had stated to the nursing staff initially that he did not use drugs; however I did find his urine drug screen to be positive for methamphetamines, opiates, benzodiazepines, and marijuana. I did speak with the patient regarding this and he stated that he "only uses once in a while" When pressed for more specifics patient admitted to smoking methamphetamines 5 days ago, though he denied any more recent use. He states he last shot up heroin 2 weeks ago. Although the patient had a history of chronic low back pain, I was concerned with the recent escalation of pain, as well as the patient's known IV drug abuse. Additionally, since he had not been honest in the original history giving, I was not confident that his current rendering was completely accurate. As such, I felt that he was at risk for discitis or spinal epidural abscess, and as such I felt he should have an MRI performed to evaluate for this. As we did not have MRI here on the weekend, I did speak with Dr. Cunningham at [place] emergency department to arrange for the patient to be transferred there for his MRI. She did accept the patient in transfer. I did discuss with the patient that we will be transferring him to [place] for the purpose of MRI to rule out a spinal infection. Patient is very concerned that he would not be discharged home with any prescriptions for pain medication, and I did state to him that this would be between him and the discharging physician. Patient's father did come out later, asking if I would send the patient with a prescription for pain medications at home and I did decline. Discussed case with health care provider (Denis/Trinh). Reviewed test results and need for additional work-up. Agreed upon treatment plan. Health care provider will see patient in ED. Patient and family counseled in person regarding the patient's serious condition, test results, diagnosis and need for additional testing and transfer. Concerns were addressed. Old medical records reviewed. Disposition: Transferred to [facility]. Condition: stable and serious. CLINICAL IMPRESSION Acute fever. Chronic nontraumatic lumbar back pain. (with acute exacerbation). Substance abuse- heroin, methamphetamines. Fever in the setting of IV drug abuse, possible discitis vs spinal epidural abscess. (Electronically signed by Pricilla Ortega MD 12/13/2016 0:07) Addenda for BOUCHRA KESSLER VisitID: [id number] Date: 12/11/2016 12/12/2016 16:16 pt was transferred to [facility]; urine culture report faxed to [facility] ([phone]) (Electronically signed by Cynthia Corbett R.N. - 12/12/2016 16:16)
--- NOTE | 2016-12-11 18:02 | ED ORDER SUMMARY ---
..... Patient: BOUCHRA KESSLER OrderSheet [facility] VisitID: [id number] [place] [address] 36y, M Registration Date/Time: 12/11/2016 ORDER SHEET Weight: 65.7 kg (stated) Allergies: No Known Drug Allergy GENERAL ORDERS: EKG - ER Stat (14:37 12/11/2016 Chelsey per protocol) (14:37 Chelsey) Chest 1V Urgent (14:52 12/11/2016 Mike CORNEJO) (Ack 14:59 Chelsey) (15:07 Teri) Financial Sales Manager (Continuous) (14:52 12/11/2016 Mike CORNEJO) (15:23 JSimbeck R.N.) CBC w Diff Urgent (14:53 12/11/2016 Mike CORNEJO) (Ack 14:59 Chelsey) (15:18 JSimbeck R.N.) CMP Urgent (14:53 12/11/2016 Mike CORNEJO) (Ack 14:59 Chelsey) (15:18 JSimbeck R.N.) UA-Culture if indicated Urgent (14:53 12/11/2016 Mike CORNEJO) (Ack 14:59 Chelsey) (16:39 JSimbeck R.N.) Pulse oximeter (14:53 12/11/2016 Mike CORNEJO) (15:23 JSimbeck R.N.) Urine Drug Screen Urgent (14:54 12/11/2016 Mike CORNEJO) (Ack 14:59 Chelsey) (16:39 JSimbeck R.N.) MEDICATION ORDERS: Acetaminophen PO 1,000 mg (NOW) (14:53 12/11/2016 Mike CORNEJO) (15:20 JSimbeck R.N.) Imitrex Subcut 6 mg (NOW) (17:55 12/11/2016 Mike CORNEJO) (18:02 JSimbeck R.N.) IV FLUIDS: IV NS : initial bolus 1000 mL (1000 mL/hr), then none - (NOW) (14:52 12/11/2016 Mike CORNEJO) (15:19 JSimbeck R.N.) Toradol IV 30 mg (NOW) (14:52 12/11/2016 Mike CORNEJO) (15:20 Lorna Falk) Dilaudid IV 1 mg (HIGH ALERT MEDICATION, NOW) (14:52 12/11/2016 Mike CORNEJO) (15:20 Lorna Falk) Dilaudid IV 1 mg (HIGH ALERT MEDICATION, NOW) (18:01 12/11/2016 Mike CORNEJO) (18:10 Lorna Falk) ORDER SHEET NOTES: [Electronically signed by Filiberto Raya R.N. (:12/11/2016)] [Electronically signed by Pricilla Ortega MD (00:07 12/13/2016)] [Electronically locked/signed by Filiberto Raya R.N. (:12/11/2016)]
--- NOTE | 2016-12-11 18:02 | ED ORDER SUMMARY ---
..... Patient: BOUCHRA KESSLER OrderSheet VisitID: [id number] [place] [address] 36y, M Registration Date/Time: 12/11/2016 ORDER SHEET Weight: 65.7 kg (stated) Allergies: No Known Drug Allergy GENERAL ORDERS: EKG - ER Stat (14:37 12/11/2016 Chelsey per protocol) (14:37 Chelsey) Chest 1V Urgent (14:52 12/11/2016 Mike CORNEJO) (Ack 14:59 Chelsey) (15:07 Teri) Internet Sales Consultant (Continuous) (14:52 12/11/2016 Mike CORNEJO) (15:23 JSimbeck R.N.) CBC w Diff Urgent (14:53 12/11/2016 Mike CORNEJO) (Ack 14:59 Chelsey) (15:18 JSimbeck R.N.) CMP Urgent (14:53 12/11/2016 Mike CORNEJO) (Ack 14:59 Chelsey) (15:18 JSimbeck R.N.) UA-Culture if indicated Urgent (14:53 12/11/2016 Mike CORNEJO) (Ack 14:59 Chelsey) (16:39 JSimbeck R.N.) Pulse oximeter (14:53 12/11/2016 Mike CORNEJO) (15:23 JSimbeck R.N.) Urine Drug Screen Urgent (14:54 12/11/2016 Mike CORNEJO) (Ack 14:59 Chelsey) (16:39 JSimbeck R.N.) MEDICATION ORDERS: Acetaminophen PO 1,000 mg (NOW) (14:53 12/11/2016 Mike CORNEJO) (15:20 JSimbeck R.N.) Imitrex Subcut 6 mg (NOW) (17:55 12/11/2016 Mike CORNEJO) (18:02 JSimbeck R.N.) IV FLUIDS: IV NS : initial bolus 1000 mL (1000 mL/hr), then none - (NOW) (14:52 12/11/2016 Mike CORNEJO) (15:19 JSimbeck R.N.) Toradol IV 30 mg (NOW) (14:52 12/11/2016 Mike CORNEJO) (15:20 Lorna Falk) Dilaudid IV 1 mg (HIGH ALERT MEDICATION, NOW) (14:52 12/11/2016 Mike CORNEJO) (15:20 Lorna Falk) Dilaudid IV 1 mg (HIGH ALERT MEDICATION, NOW) (18:01 12/11/2016 Mike CORNEJO) (18:10 Lorna Falk) ORDER SHEET NOTES: [Electronically signed by Filiberto Raya R.N. (:12/11/2016)] [Electronically signed by Pricilla Ortega MD (00:07 12/13/2016)] [Electronically locked/signed by Filiberto Raya R.N. (:12/11/2016)]
--- NOTE | 2016-12-11 18:02 | ED NURSING NOTES ---
Clinical Report - Nurses [place] [address] [place] [address] 12/11/2016 12:42 Patient: BOUCHRA KESSLER TRIAGE Triage time 12:48. Acuity: LEVEL 3. Chief Complaint: (Severe low back pain, SOB, chest tightness. He was seen at [facility] yesterday and dx with acute kkidney injury and lumbar disc herniation and Rx for Flexeril that he has not filled.). SEPSIS SCREEN: Sepsis Screen. Negative (no infection suspected/documented). JASMIN COMA SCORE: Jasmin Coma Scale: 15- eyes open spontaneously (4); best verbal response- oriented x 4 (5); best motor response- obeys commands (6). --12:56 Filiberto Raya R.N. 12:50 12/11/16. BP: 115/75 (regular adult cuff) taken on the left arm, while lying. HR: 113. RR: 24. O2 saturation: 97% on room air. Temp: 98.2 F (oral). Pain level now: 03/14. --12:56 Filiberto Raya R.N. correction to prior entry - 18:06. --18:06 Filiberto Raya R.N. Weight: 65.7 kg stated. Height/Length: 66 inches Per Patient. BMI: 23.4. --12:53 Filiberto Raya R.N. Medications Lyrica Oral. --12:53 Filiberto Raya R.N. Allergies No Known Drug Allergy. --12:52 Filiberto Raya R.N. History Arrived by private vehicle. Historian: patient (friend). Accompanied by friend. Treatment DISTRICT SALES MANAGER: None. SOCIAL HX: Never smoker. History of occasional drug use: marijuana. No alcohol use. ABUSE ASSESSMENT: No report of abuse. --12:56 Filiberto Raya R.N. SOCIAL HX: History of drug use: heroin, methamphetamines, marijuana. Recently used drugs. (Initially denied drug use, now admits poly drug use.). --18:06 Filiberto Raya R.N. PROBLEMS: Lumbar Radiculopathy. Arthritis. Substance Abuse. Paronychia. Bronchitis. Fractured Phalanx (Toe). Abrasion(s). Epididymitis. Hernia. Back Injury. Back Pain. Acute Otalgia. Otitis Media. --12:53 Filiberto Raya R.N. ADDITIONAL SURGERIES: Back Surgery. Inguinal Hernia Repair. --12:53 Filiberto Raya R.N. Interventions ID band on patient. To treatment room. --12:56 Filiberto Raya R.N. PHYSICAL ASSESSMENT To room via wheelchair. ( Severe low back pain, unable to walk unassisted from w/c to bed). GENERAL / NEURO / PSYCH: Alert. Oriented X 4. Appears in pain and anxious. HEENT: Pupils equal, round and reactive to light. No facial asymmetry noted. Mucous membranes are pink. RESPIRATORY: Respiratory distress (c/o SOB due to the back pain, c/o chest tightness.). Breath sounds within normal limits. CVS: Cardiac rhythm: sinus tachycardia. Capillary refill less than 2 seconds. Pulses within normal limits. GI / : Abdomen soft and nontender and normal bowel sounds. SKIN: Skin is warm and dry. Normal skin turgor. --13:02 Filiberto Raya R.N. NURSING PROGRESS NOTES EKG time: (1252). EKG was ordered, performed by a tech and shown to the ED physician. --12:57 Alberto Chavis, CROW Tech1 Patient gowned. Head of bed elevated. Reassurance given. Two patient identifiers checked. Call light placed in reach. Bed placed in lowest position. Brakes of bed on. Patient ready for evaluation- chart flagged. ( Friend at bedside). --13:02 Filiberto Raya R.N. 15:15 12/11/2016 Site #1 started via IV in the right hand with an 18g angiocath, with aseptic technique and good blood return; one attempt. Blood drawn: rainbow set. Labeled in the presence of the patient and sent to the lab. Saline lock flushed with 10 mL saline. --15:19 Filiberto Raya R.N. 15:15 12/11/2016 Started bag #1 1000 mL IV Fluids IV NS (Saline); bolus of 1000 mL over 45 minute(s) via site #1. Allergies verified and confirmed 5 rights. IV patency established. IV site checked: no pain, redness, or swelling. IV flushed thoroughly pre- and post-medication administration. --15:19 Filiberto Raya R.N. 15:15 12/11/2016 Dilaudid (HYDROmorphone HCl PF) IVP 1 mg given over 1 minute(s) via site #1. Allergies verified, confirmed 5 rights and sedative warning given to the patient. IV patency established. IV site checked: no pain, redness, or swelling. IV flushed thoroughly pre- and post-medication administration. IVP given by RN. --15:20 Filiberto Raya R.N. 15:17 12/11/2016 Toradol IVP 30 mg given over 1 minute(s) via site #1. Allergies verified and confirmed 5 rights. IV patency established. IV site checked: no pain, redness, or swelling. IV flushed thoroughly pre- and post-medication administration. IVP given by RN. --15:20 Filiberto Raya R.N. 15:20 12/11/2016 Acetaminophen (APAP) PO Tablets 1000 mg given. Allergies verified and confirmed 5 rights. --15:20 Filiberto Raya R.N. 15:00 12/11/16. Temp: 102.2 F (oral). --15:24 Filiberto Raya R.N. 16:05 12/11/16. BP: 109/63. HR: 124. RR: 22. O2 saturation: 94% on room air. Pain level now: 12/12. --16:23 Filiberto Raya R.N. Cardiac rhythm: sinus tachycardia. --16:23 Filiberto Raya R.N. 16:15 12/11/2016 IV Fluids IV NS Discontinued: bag #1 completed. Total amount infused: 1000 mL. IV patency established. IV site checked: no pain, redness, or swelling. IV flushed thoroughly. --16:24 Filiberto Raya R.N. 15:50 12/11/16. BP: 106/63. HR: 124. RR: 19. O2 saturation: 99% on room air. --16:24 Filiberto Raya R.N. 15:35 12/11/16. BP: 114/66. HR: 123. RR: 19. O2 saturation: 96% on room air. --16:25 Filiberto Raya R.N. 14:30 12/11/16. BP: 115/67. HR: 123. RR: 21. O2 saturation: 95% on room air. --16:48 Filiberto Raya R.N. 13:30 12/11/16. BP: 114/61. HR: 125. RR: 24. O2 saturation: 94% on room air. --16:49 Filiberto Raya R.N. 18:02 12/11/2016 Imitrex (SUMAtriptan Succinate) Subcutaneous 6 mg given. Given in the left upper arm. Allergies verified and confirmed 5 rights. --18:02 Filibreto Raya R.N. 18:02 12/11/16. Temp: 98.4 F (oral). Pain level now: 01/12. --18:02 Filiberto Raya R.N. 18:10 12/11/2016 Dilaudid (HYDROmorphone HCl PF) IVP 1 mg given over 1 minute(s) via site #1. Allergies verified, confirmed 5 rights and sedative warning given to the patient. IV patency established. IV site checked: no pain, redness, or swelling. IV flushed thoroughly pre- and post-medication administration. IVP given by RN. --18:10 Filiberto Raya R.N. 16:30 12/11/16. BP: 109/65. HR: 121. RR: 20. O2 saturation: 94% on room air. --18:26 Filiberto Raya R.N. 17:00 12/11/16. BP: 108/65. HR: 112. RR: 16. O2 saturation: 96% on room air. --18:26 Filiberto Raya R.N. 17:30 12/11/16. BP: 117/76. HR: 110. RR: 17. O2 saturation: 96% on room air. --18:31 Filiberto Raya R.N. 18:00 12/11/16. BP: 114/76. HR: 110. RR: 20. O2 saturation: 95% on room air. Pain level now: 8/10. --18:32 Filiberto Raya R.N. DISPOSITION / DISCHARGE 19:01 12/11/2016 Site #[address] upon transfer; patent, no pain and no signs of infection or infiltration. Good blood return present. Flushed with 10 mL saline; flushes easily. --19:01 Filiberto Raya R.N. Cardiac rhythm: sinus tachycardia. Departure time: 190. Condition at departure: unchanged and stable. Transferred to [facility] Summary of care provided to transport team via paper. Transported via stretcher by EMS with IV. Report was given in person. Report included patient's care, treatment, medications, reviewed medication reconcilliation, and condition (including any recent changes or anticipated changes). All questions were answered. Report was acknowledged. (A EMT). --19:27 Filiberto Raya R.N. 18:45 12/11/16. BP: 105/71. HR: 104. RR: 14. O2 saturation: 98% on room air. Temp: 98.4 F (oral). Pain level now: 11/12. --19:27 Filiberto Raya R.N. Locked/Released at 12/11/2016 19:28 by Filiberto Raya R.N.
--- NOTE | 2016-12-13 00:07 | ED MAR SUMMARY ---
..... Medication Administration Record [facility] [address] [place] [address] Patient: BOUCHRA KESSLER Visit ID: [id number] 36y, M Weight: 65.7 kg Height/Length: 66 in BMI: 23.4 ALLERGIES: No Known Drug Allergy Given 15:15 12/11/2016 Filiberto Raya R.N. Medication Administered: DILAUDID [IVP] (HYDROMORPHONE HCL PF), Dose: 1 mg IVP over 1 minute(s), Site: #1 right hand. Medication Ordered: Dilaudid IV 1 mg (HIGH ALERT MEDICATION, NOW). Start 15:15 12/11/2016 Filiberto Raya R.N., Stop 16:15 12/11/2016 Filiberto Raya R.N. Medication Administered: IV NS (SALINE), Dose: IV Fluids, Bolus: 1000 mL over 45 minute(s), Dispensed: 1000 mL bag, Site: #1 right hand. Medication Ordered: IV NS : initial bolus 1000 mL (1000 mL/hr), then none - (NOW). Given 15:17 12/11/2016 Filiberto Raya R.N. Medication Administered: TORADOL [IVP], Dose: 30 mg IVP over 1 minute(s), Site: #1 right hand. Medication Ordered: Toradol IV 30 mg (NOW). Given 15:20 12/11/2016 Filiberto Raya R.N. Medication Administered: ACETAMINOPHEN [PO] (APAP), Dose: 1000 mg Tablets PO. Medication Ordered: Acetaminophen PO 1,000 mg (NOW). Given 18:02 12/11/2016 Filiberto Raya R.N. Medication Administered: IMITREX [SUBCUTANEOUS] (SUMATRIPTAN SUCCINATE), Dose: 6 mg Subcutaneous. Medication Ordered: Imitrex Subcut 6 mg (NOW). Given 18:12/11/2016 Filiberto Raya R.N. Medication Administered: DILAUDID [IVP] (HYDROMORPHONE HCL PF), Dose: 1 mg IVP over 1 minute(s), Site: #1 right hand. Medication Ordered: Dilaudid IV 1 mg (HIGH ALERT MEDICATION, NOW).
--- NOTE | 2016-12-13 00:07 | ED MAR SUMMARY ---
..... Medication Administration Record [facility] [address] [place] [address] Patient: BOUCHRA KESSLER Visit ID: [id number] 36y, M Weight: 65.7 kg Height/Length: 66 in BMI: 23.4 ALLERGIES: No Known Drug Allergy Given 15:15 12/11/2016 Filiberto Raya R.N. Medication Administered: DILAUDID [IVP] (HYDROMORPHONE HCL PF), Dose: 1 mg IVP over 1 minute(s), Site: #1 right hand. Medication Ordered: Dilaudid IV 1 mg (HIGH ALERT MEDICATION, NOW). Start 15:15 12/11/2016 Filiberto Raya R.N., Stop 16:15 12/11/2016 Filiberto Raya R.N. Medication Administered: IV NS (SALINE), Dose: IV Fluids, Bolus: 1000 mL over 45 minute(s), Dispensed: 1000 mL bag, Site: #1 right hand. Medication Ordered: IV NS : initial bolus 1000 mL (1000 mL/hr), then none - (NOW). Given 15:17 12/11/2016 Filiberto Raya R.N. Medication Administered: TORADOL [IVP], Dose: 30 mg IVP over 1 minute(s), Site: #1 right hand. Medication Ordered: Toradol IV 30 mg (NOW). Given 15:20 12/11/2016 Filiberto Raya R.N. Medication Administered: ACETAMINOPHEN [PO] (APAP), Dose: 1000 mg Tablets PO. Medication Ordered: Acetaminophen PO 1,000 mg (NOW). Given 18:02 12/11/2016 Filiberto Raya R.N. Medication Administered: IMITREX [SUBCUTANEOUS] (SUMATRIPTAN SUCCINATE), Dose: 6 mg Subcutaneous. Medication Ordered: Imitrex Subcut 6 mg (NOW). Given 18:12/11/2016 Filiberto Raya R.N. Medication Administered: DILAUDID [IVP] (HYDROMORPHONE HCL PF), Dose: 1 mg IVP over 1 minute(s), Site: #1 right hand. Medication Ordered: Dilaudid IV 1 mg (HIGH ALERT MEDICATION, NOW).
--- NOTE | 2016-12-13 00:07 | ED DISCHARGE INSTRUCTIONS ---
Patient: BOUCHRA KESSLER General Instructions [facility] VisitID: [id number] [address] [place] [address] 36y, M Registration Date/Time: 12/11/2016 Acute fever. Chronic nontraumatic lumbar back pain. (with acute exacerbation). Substance abuse- heroin, methamphetamines. (Electronically signed by Pricilla Ortega MD 12/13/2016 0:07)
--- NOTE | 2016-12-13 00:07 | ED DISCHARGE INSTRUCTIONS ---
Patient: BOUCHRA KESSLER General Instructions [facility] VisitID: [id number] [address] [place] [address] 36y, M Registration Date/Time: 12/11/2016 Acute fever. Chronic nontraumatic lumbar back pain. (with acute exacerbation). Substance abuse- heroin, methamphetamines. (Electronically signed by Pricilla Ortega MD 12/13/2016 0:07)
--- NOTE | 2016-12-13 00:08 | ED MED RECONCILIATION SUMMARY ---
Patient: BOUCHRA KESSLER Medication Reconciliation Report [facility] VisitID: [id number] [address] [place] [address] 36y, M Registration Date/Time: 12/11/2016 Weight: 65.7 kg Height/Length: 66 in. BMI: 23.4 ALLERGIES: No Known Drug Allergy The patient's Home Medications are listed below: THE FOLLOWING MEDICATIONS NEED TO BE RECONCILED: Lyrica Oral The source(s) of the original Home Medication information: Not obtained. The following Medications were given to the patient in the Emergency Department: IV NS IV Fluids bolus 1000 mL over 45 minute(s), administered: 12/11/2016 3:15:00 PM Dilaudid [IVP] IVP 1 mg, administered: 12/11/2016 3:15:00 PM Toradol [IVP] IVP 30 mg, administered: 12/11/2016 3:17:00 PM Acetaminophen [PO] PO 1000 mg, administered: 12/11/2016 3:20:00 PM Imitrex [Subcutaneous] Subcutaneous 6 mg, administered: 12/11/2016 6:02:00 PM Dilaudid [IVP] IVP 1 mg, administered: 12/11/2016 6:10:00 PM The following Medications were prescribed to the patient: None.
--- NOTE | 2016-12-13 00:08 | ED MED RECONCILIATION SUMMARY ---
Patient: BOUCHRA KESSLER Medication Reconciliation Report [facility] VisitID: [id number] [address] [place] [address] 36y, M Registration Date/Time: 12/11/2016 Weight: 65.7 kg Height/Length: 66 in. BMI: 23.4 ALLERGIES: No Known Drug Allergy The patient's Home Medications are listed below: THE FOLLOWING MEDICATIONS NEED TO BE RECONCILED: Lyrica Oral The source(s) of the original Home Medication information: Not obtained. The following Medications were given to the patient in the Emergency Department: IV NS IV Fluids bolus 1000 mL over 45 minute(s), administered: 12/11/2016 3:15:00 PM Dilaudid [IVP] IVP 1 mg, administered: 12/11/2016 3:15:00 PM Toradol [IVP] IVP 30 mg, administered: 12/11/2016 3:17:00 PM Acetaminophen [PO] PO 1000 mg, administered: 12/11/2016 3:20:00 PM Imitrex [Subcutaneous] Subcutaneous 6 mg, administered: 12/11/2016 6:02:00 PM Dilaudid [IVP] IVP 1 mg, administered: 12/11/2016 6:10:00 PM The following Medications were prescribed to the patient: None.
== END 2016-12-11 19:01 | disposition short-term general hospital (02) ==
LOC: ED SRH 12:41
DX: M54.5 Low back pain (principal); G89.29 Other chronic pain; R50.9 Fever, unspecified; F11.10 Opioid abuse, uncomplicated; F15.10 Other stimulant abuse, uncomplicated; Z79.899 Other long term (current) drug therapy
CPT/HCPCS: 90004; 90100; 90469; 90627; 91643; 92760; 92761; 92762; 92763; 92764; 92765; 92766; 92767; 95059